=== PATIENT | male | born 1990 | race Two or more races ===

== ENCOUNTER 2016-08-30 01:24 | Emergency (ER) | payer OTHER ==
[~2016-08-30] VITALS: Ht 167.6 cm; Wt 79.4 kg
--- NOTE | 2016-08-30 01:28 | PHYS DOC ---
Adult General Chief Complaint Chief Complaint: ALLERGIC REACTION HPI HPI Patient is a 26 year old male who presents with hives. He states it started early this morning is been progressing all day long. He states he had tried a new body wash that could be causing. He denies any past medical history , allergies meds are on any medicines. He denies any trouble swallowing breathing or changes in his voice. He has not tried anything as of yet to treat his hives. Denies ever having this before. He states his arms especially are itchy. Review of Systems Review of Systems Constitutional: Denies fever or chills [] Eyes: Denies change in visual acuity, redness, or eye pain [] HENT: Denies nasal congestion or sore throat [] Respiratory: Denies cough or shortness of breath [] Cardiovascular: No additional information not addressed in HPI [] GI: Denies abdominal pain, nausea, vomiting, bloody stools or diarrhea [] : Denies dysuria or hematuria [] Musculoskeletal: Denies back pain or joint pain [] Integument: Positive for skin rash Neurologic: Denies headache, focal weakness or sensory changes [] Endocrine: Denies polyuria or polydipsia [] Current Medications Current Medications Current Medications Medications (Trade) Dose Ordered Sig/Poornima Start Time Stop Time Status Last Admin Dose Admin Diphenhydramine HCl (Benadryl) 50 mg 1X ONCE 08/30/16 02:15 08/30/16 02:46 DC 08/30/16 02:25 50 MG Famotidine (Pepcid) 20 mg 1X ONCE 08/30/16 02:15 08/30/16 02:46 DC 08/30/16 02:25 20 MG Methylprednisolone Sodium Succinate (SOLU-Medrol 125MG VIAL) 125 mg 1X ONCE 08/30/16 02:15 08/30/16 02:46 DC 08/30/16 02:25 125 MG Sodium Chloride 1,000 ml @ 1,000 mls/hr Q1H 08/30/16 02:11 08/30/16 03:10 DC 08/30/16 02:25 1,000 MLS/HR Allergies Allergies Allergies Coded Allergies Type Severity Reaction Last Updated Verified No Known Drug Allergies 08/30/16 No Physical Exam Physical Exam Constitutional: Well developed, well nourished, no acute distress, non-toxic appearance. [] HENT: Normocephalic, atraumatic, bilateral external ears normal, oropharynx moist, no oral exudates, nose normal. [] Eyes: PERRLA, EOMI, conjunctiva normal, no discharge. [] Neck: Normal range of motion, no tenderness, supple, no stridor. [] Cardiovascular:Heart rate regular rhythm, no murmur [] Lungs & Thorax: Bilateral breath sounds clear to auscultation [] Abdomen: Bowel sounds normal, soft, no tenderness, no masses, no pulsatile masses. [] Skin: Warm, dry, no erythema, urticaria to bilateral arms, small amount anterior chest Back: No tenderness, no CVA tenderness. [] Extremities: No tenderness, no cyanosis, no clubbing, ROM intact, no edema. [] Neurologic: Alert and oriented X 3, normal motor function, normal sensory function, no focal deficits noted. [] Psychologic: Affect normal, judgement normal, mood normal. [] Current Patient Data Vital Signs Vital Signs Date Time Temp Pulse Resp B/P (MAP) Pulse Ox O2 Delivery O2 Flow Rate FiO2 08/30/16 01:55 98.4 82 18 96 Room Air 98.4 EKG EKG [] Radiology/Procedures Radiology/Procedures [] Impressions: Allergic reaction with urticaria Course & Med Decision Making Course & Med Decision Making Pertinent Labs and Imaging studies reviewed. (See chart for details) You received Benadryl, Pepcid, slight Medrol and his symptoms are improving. He is being discharged home with prednisone for the next 4 days 50 mg by mouth daily, Pepcid 20 mg by mouth daily and Benadryl when necessary. And is to follow -up with primary care physician within the next week. Dragon Disclaimer Dragon Disclaimer This electronic medical record was generated, in whole or in part, using a voice recognition dictation system. Departure Departure Impression: Primary Impression: Urticaria Disposition: HOME, SELF-CARE Condition: STABLE Patient Instructions: Allergies, Generic Additional Instructions: You were seen and night for your skin rash. You received steroids, Benadryl and Pepcid and her symptoms have improved. Your being discharged home with Benadryl and Pepcid they can purchase [id number]. Please follow the instructions on the bottle. You will also need take prednisone 50 mg by mouth for the next 4 days. He should follow up with primary care physician within the next week. Return ER for any troubles breathing, your rash comes back gets worse or you have other concerns. Scripts Prednisone (PREDNISONE) 50 Mg Tablet 1 TAB PO DAILY, #4 TAB Prov: JM JACOBSON MD 08/30/16 JM JACOBSON MD Aug 30, 2016 01:28
[2016-08-30 01:55] VITALS: BP 158/98
[2016-08-30] MEDS ORDERED: IV NORMAL SALINE 1000ML BAG 1,000 ML IV SCH (02:11)
[2016-08-30] MEDS ORDERED: FAMOTIDINE 20 MG/2 ML VIAL IVP ONE (02:15)
[2016-08-30] MEDS ORDERED: methylPREDNISolone SOD SUCC PF 125 MG/2 ML VIAL. IV ONE (02:15)
[2016-08-30] MEDS ORDERED: diphenhydrAMINE 50 MG/ML VIAL IV ONE (02:15)
[2016-08-30] MEDS ORDERED: PRED50TA PO (03:22)
== END 2016-08-30 03:28 | disposition home or self-care (01) ==
LOC: ER 01:24
DX: L50.9 Urticaria, unspecified (principal)
CPT/HCPCS: 96361; 96374; 96375; 99284; J1200; J2930; J7030; S0028